=== PATIENT | female | born 1940 | race Caucasian/White ===

== ENCOUNTER 2018-05-07 17:40 | Emergency (ER) | payer MEDICARE, BC, OTHER ==
[~2018-05-07] VITALS: Ht 160 cm; Wt 73.5 kg
[2018-05-07 18:27] LABS: ABSOLUTE LYMPHOCYTES 1.7 thou/uL (0.8-5.3); ABSOLUTE MONOCYTES 0.5 thou/uL (0.0-1.2); ABSOLUTE NEUTROPHILS 5.9 thou/uL (1.6-8.1); BASOPHILS 0.5 %; EOSINOPHILS 0.5 %; HEMATOCRIT 36.2 % (37.0-47.0); HEMOGLOBIN 11.8 gm/dL (12.0-15.0); LYMPHOCYTES 21.1 %; MCHC 32.7 g/dL (28.0-37.0); MCV 82.5 fL (80.0-100.0); MONOCYTES 5.5 %; MPV 8.8 fl. (7.2-11.1); NUCLEATED RBCS 0 /100WBC; PLATELET COUNT* 209 thou/uL (150-400); POLYS 72.4 %; RBC 4.39 mil/uL (4.20-5.00); RDW-CV 15.1 % (10.5-14.5); WBC 8.2 thou/uL (4.0-11.0)
[2018-05-07 18:41] LABS: ALBUMIN 3.9 g/dL (3.4-5.0); CREATININE 1.1 mg/dL (0.6-1.3); POTASSIUM 4.1 mmol/L (3.5-5.1); TOTAL BILIRUBIN 0.7 mg/dL (<0.1-1.0); TOTAL PROTEIN 7.5 g/dL (6.4-8.2)
[2018-05-07 20:36] LABS: URINE BILIRUBIN NEGATIVE (Negative); URINE BLOOD TRACE (Negative); URINE CLARITY CLEAR; URINE COLOR YELLOW; URINE GLUCOSE-RANDOM NEGATIVE (Negative); URINE KETONES NEGATIVE (Negative); URINE LEUKOCYTES-REFLEX 1+ (Negative); URINE PROTEIN NEGATIVE (Negative); URINE SPECIFIC GRAVITY 1.015 (1.005-1.030); URINE UROBILINOGEN 0.2 E.U./dl (0.2-1.0)
[2018-05-07] MEDS ORDERED: NORCO 7.5-3251 EACH PO (20:36)
[2018-05-07 20:37] LABS: URINE NITRITE-REFLEX POSITIVE (Negative)
[2018-05-07 20:55] VITALS: BP 139/71
[2018-05-07 21:01] LABS: SQUAMOUS 0-3 Few /LPF (0-3)
[2018-05-07 21:02] LABS: BACTERIA-REFLEX >30 Many /HPF (None Seen); CRYSTALS None Seen /LPF (None Seen); HYALINE CASTS 0-3 Few /LPF (None Seen); URINE RBC 0-2 Rare /HPF (0-2); URINE WBC-REFLEX 6-15 Few /HPF (0-5)
--- NOTE | 2018-05-08 12:15 | EKG ---
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 : 1940 Requested By: Everette Lawrence Order Number: [id number] MD: Yan Delarosa Measurements Intervals [place] Rate: 52 P: 39 LA: 129 QRS: 9 QRSD: 84 T: 54 QT: 434 QTc: 404 Interpretive Statements Sinus rhythm Minimal ST elevation, inferior leads No previous ECG available for comparison Electronically Signed On 05-08-2018 12:14:52 CDT by Yan Delarosa [email or web address] <ELECTRONICALLY SIGNED> By: Yan Delarosa MD, [facility] 05/08/18 1214 1841 1841 Yan Delarosa MD, FACC /EPI
== END 2018-05-07 20:57 | disposition home or self-care (01) ==
LOC: M.ERS 17:40
PROVIDERS: Emergency Medicine
DX: S20.211A Contusion of right front wall of thorax, initial encounter (principal); E11.9 Type 2 diabetes mellitus without complications; V89.0XXA Person injured in unspecified motor-vehicle accident, nontraffic, initial encounter; Y93.89 Activity, other specified; Y92.89 Other specified places as the place of occurrence of the external cause; Y99.8 Other external cause status